=== PATIENT | male | born 1960 | race Caucasian/White ===

== ENCOUNTER 2019-02-25 07:07 | Day surgery (SDC) | payer BC ==
[~2019-02-25] VITALS: Ht 172.7 cm; Wt 95.9 kg
[~2019-02-25 07:07] MED LIST: ACET325 PO; ASPI325EC PO; ATOR40TA PO; Aspir 8181 MG PO; CLIN300 PO; CLOP75 PO; Coq-10100 MG PO; HYDACE5; LOSA25 PO; Lopressor 25 mg25 MG PO; METO25 PO; METPRE4DP PO; OXYACE5T PO; RXOXYACE PO; Ranitidine HCl150 M1 PO; VITAMIN D350000 UNIT PO
== END 2019-02-25 09:30 | disposition home or self-care (01) ==
LOC: ORSCSDS 07:07
PROVIDERS: Surgery
PROC: 0DBP8ZX Excision of Rectum, Via Natural or Artificial Opening Endoscopic, Diagnostic (ICD-10-PCS; principal; 2019-02-25 08:30)
DX: Z12.11 Encounter for screening for malignant neoplasm of colon (principal); K62.1 Rectal polyp; I21.4 Non-ST elevation (NSTEMI) myocardial infarction; I25.10 Atherosclerotic heart disease of native coronary artery without angina pectoris; E78.5 Hyperlipidemia, unspecified; E66.9 Obesity, unspecified; Z68.34 Body mass index [BMI] 34.0-34.9, adult; Z79.01 Long term (current) use of anticoagulants; Z79.82 Long term (current) use of aspirin; Z79.899 Other long term (current) drug therapy
CPT/HCPCS: 88305; J2704; J7120

== ENCOUNTER 2022-02-08 21:39 | Emergency (ER) | payer BC ==
[~2022-02-08] VITALS: Ht 172.7 cm; Wt 95.2 kg
[2022-02-08 22:22] LABS: BASOPHILS ABSOLUTE AUTO 0.03 K/mm3 (0.00-0.23); BASOPHILS PERCENT AUTO 0 % (0-2); EOSINOPHILS ABSOLUTE AUTO 0.27 K/mm3 (0.00-0.68); EOSINOPHILS PERCENT AUTO 4 % (0-6); Hematocrit 42.5 % (37.0-53.0); Hemoglobin 14.2 g/dL (13.5-17.5); IMMATURE GRAN ABSOLUTE AUTO 0.01 K/mm3 (0.00-0.10); IMMATURE GRAN PERCENT AUTO 0 % (0-1); LYMPHOCYTES ABSOLUTE AUTO 1.26 K/mm3 (0.84-5.20); LYMPHOCYTES PERCENT AUTO 16 % (21-46); MONOCYTES ABSOLUTE AUTO 0.81 K/mm3 (0.16-1.47); MONOCYTES PERCENT AUTO 11 % (4-13); Mean Corpuscular HGB 29.3 pg (26.0-34.0); Mean Corpuscular HGB Conc 33.4 g/dL (31.5-36.5); Mean Corpuscular Volume 88 fL (80-100); NEUTROPHILS ABSOLUTE AUTO 5.35 K/mm3 (1.96-9.15); NEUTROPHILS PERCENT AUTO 69 % (41-73); Platelet Count 255 K/mm3 (150-400); RDW Coefficient Variation 13.3 % (11.7-14.2); RDW Standard Deviation 43.6 fL (35.1-46.3); Red Blood Cell Count 4.84 M/mm3 (4.30-5.90); White Blood Cell Count 7.73 K/mm3 (4.00-11.30)
[2022-02-08 22:41] LABS: Alanine Aminotransfer (ALT/SGP 34 U/L (12-78); Albumin, Blood 3.6 g/dL (3.4-5.0); Albumin/Globulin Ratio 0.9 (0.8-1.8); Alk Phos 97 U/L (50-136); Anion Gap 5 mmol/L (6-16); Aspartate Aminotrans (AST/SGOT 24 U/L (12-37); Bilirubin, Total 0.5 mg/dL (0.1-1.0); Blood Urea Nitrogen 17 mg/dL (8-24); Bun/Creatinine Ratio 15.6 (12.0-20.0); CO2, Blood 27 mmol/L (21-32); Calcium, Blood 8.9 mg/dL (8.5-10.1); Chloride, Blood 109 mmol/L (98-108); Creatinine, Blood 1.09 mg/dL (0.60-1.20); Globulin, Blood 4.1 g/dL (2.2-4.0); Glomerular Filtration Rate >60 (60-); Glucose, Blood 102 mg/dL (70-99); Potassium, Blood 3.9 mmol/L (3.5-5.5); Sodium, Blood 141 mmol/L (136-145); Total Protein, Blood 7.7 g/dL (6.4-8.2)
[2022-02-08 22:46] LABS: Influenza A, PCR NEGATIVE (NEGATIVE); Influenza B, PCR NEGATIVE (NEGATIVE); Resp Syncytial Virus, PCR NEGATIVE (NEGATIVE); SARS-Cov-2 (COVID-19) PCR, MMC NEGATIVE (NEGATIVE)
[2022-02-08] MEDS ORDERED: LORA10ER PO (23:15)
[2022-02-08] MEDS ORDERED: ALBU90OI INH (23:15)
[2022-02-08] MEDS ORDERED: AZIT250 PO (23:15)
== END 2022-02-08 23:48 | disposition home or self-care (01) ==
LOC: ER 21:39
PROVIDERS: Physician Assistant
DX: J06.9 Acute upper respiratory infection, unspecified (principal); Z20.822 Contact with and (suspected) exposure to COVID-19; I25.2 Old myocardial infarction; I25.10 Atherosclerotic heart disease of native coronary artery without angina pectoris; E78.5 Hyperlipidemia, unspecified; Z79.82 Long term (current) use of aspirin; Z79.899 Other long term (current) drug therapy
CPT/HCPCS: 0241U; 36415; 71045; 80053; 84484; 85025; 93005; 93010; 99284-25; A9270

== ENCOUNTER 2025-07-22 08:54 | Observation (INO) | payer MEDICARE ==
[~2025-07-22] VITALS: Ht 172.7 cm; Wt 94.8 kg
[2025-07-22] VITALS (14 sets, daily range): BP systolic 106–156; BP diastolic 60–104
[~2025-07-22 08:54] MED LIST changes: +ALBU90OI INH; +AMLO5 PO; +AZIT250 PO; +Crestor40 MG PO; +EZET10 PO; +LORA10ER PO; +PANT40 PO
[2025-07-22] MEDS ORDERED: Heparin Sodium 1000 Units/ML 10ML MDV ONE ×2 (09:45→09:48)
[2025-07-22] MEDS ORDERED: NS 250 ML IV ONE (09:45)
[2025-07-22] MEDS ORDERED: NS 1,000 ML IV ONE ×2 (09:45→09:48)
[2025-07-22] MEDS ORDERED: Nitroglycerin 2 MG/20 ML BTL ONE (09:46)
[2025-07-22] MEDS ORDERED: Verapamil HCL 2.5 MG/ML 2ML Injection ONE (10:01)
[2025-07-22] MEDS ORDERED: Midazolam HCl 1MG / ML 2ML Vial ONE (10:11)
[2025-07-22] MEDS ORDERED: FentaNYL Citrate 50 MCG/ML 2 ML Injection ONE (10:11)
[2025-07-22] MEDS ORDERED: NiCARdipine HCL 1,000 MCG/5 ML SYR ONE (11:10)
--- NOTE | 2025-07-22 12:49 | NUR ---
FOLLOWED PT BACK FROM PROCEDURE, WAITING ON A PCU BED AT THIS TIME. R GROIN SITE STABLE AND L RADIAL SITE STABLE.
[2025-07-22] MEDS ORDERED: Polyethylene Glycol 3350 17 gm PO PRN (13:55)
--- NOTE | 2025-07-22 14:12 | NUR ---
arrival to pcu patient arrived to pcu at 1306 from [facility]. patient has right femoral site that is soft nontender, no hematoma or bleeding. angio seal is in place and patient is to lay flat until 1800. patient has a left radail site with tr band in place and 11cc in, and site is soft nontender and no bleeding or hematoma. bedside shift report given from [facility] nurse. patient is alert and oriented x4. neuro is intact. perrla. denies pain, chest pain/pressure or shortness of breath. patient lung sonds clear throughout. see amdit shift assessment for further detials. home med rec complete. history complete. admit is complete. patient life partner in the room and info on the board.
--- NOTE | 2025-07-22 16:59 | NUR ---
shift summary see previous note. vital signs remain stable. md og in room this afternoon around 1535 and discussed results of angio with the patient. patient verbalized understanding. patient right groin site is soft nontender and no hematome or bleeding. patient has remained laying flat and will until 1800. patient left radail site has been full recovered, and site is soft nontender and no hematoma. no acute changes since arrival.
[2025-07-23 00:18] VITALS: BP 104/56
[2025-07-23 04:02] VITALS: BP 122/77
[2025-07-23 04:23] LABS: BASOPHILS ABSOLUTE AUTO 0.02 K/mm3 (0.00-0.23); BASOPHILS PERCENT AUTO 0 % (0-2); EOSINOPHILS ABSOLUTE AUTO 0.15 K/mm3 (0.00-0.68); EOSINOPHILS PERCENT AUTO 2 % (0-6); Hematocrit 37.8 % (37.0-53.0); Hemoglobin 12.8 g/dL (13.5-17.5); IMMATURE GRAN ABSOLUTE AUTO 0.02 K/mm3 (0.00-0.10); IMMATURE GRAN PERCENT AUTO 0 % (0-1); LYMPHOCYTES ABSOLUTE AUTO 1.65 K/mm3 (0.84-5.20); LYMPHOCYTES PERCENT AUTO 24 % (21-46); MONOCYTES ABSOLUTE AUTO 0.64 K/mm3 (0.16-1.47); MONOCYTES PERCENT AUTO 9 % (4-13); Mean Corpuscular HGB Conc 33.9 g/dL (31.5-36.5); Mean Corpuscular Volume 88 fL (80-100); NEUTROPHILS ABSOLUTE AUTO 4.41 K/mm3 (1.96-9.15); NEUTROPHILS PERCENT AUTO 64 % (41-73); NRBC ABSOLUTE 0.00 K/mm3 (0.00-0.02); NRBC Auto 0.0 /100 WBC (0.0-0.2); Platelet Count 217 K/mm3 (150-400); RDW Coefficient Variation 13.1 % (11.7-14.2); RDW Standard Deviation 42.5 fL (35.1-46.3)
--- NOTE | 2025-07-23 06:51 | NUR ---
NO ACUTE EVENTS OVERNIGHT. PT'S LEFT RADIAL SITE AND RIGHT GROIN SITE ARE WNL. PT ABLE TO AMBULATE TO BATHROOM INDEPENDENTLY. PT HAD NO COMPLAINTS OF CHEST PAIN/PRESSURE. VSS. BED LOCKED IN LOWEST POSITION. CALL LIGHT WITHIN REACH.
[2025-07-23 06:58] LABS: Alanine Aminotransfer (ALT/SGP 44.0 U/L (12-78); Albumin, Blood 3.4 g/dL (3.4-5.0); Albumin/Globulin Ratio 1.2 (0.8-1.8); Anion Gap 8.0 mmol/L (3-11); Aspartate Aminotrans (AST/SGOT 25.0 U/L (12-37); Bilirubin, Total 0.4 mg/dL (0.1-1.0); Blood Urea Nitrogen 19.0 mg/dL (8-24); CO2, Blood 23.0 mmol/L (21-32); Calcium, Blood 8.9 mg/dL (8.5-10.1); Chloride, Blood 111.0 mmol/L (98-108); Creatinine, Blood 1.04 mg/dL (0.60-1.20); Globulin, Blood 2.9 g/dL (2.2-4.0); Glucose, Blood 92.0 mg/dL (70-99); Potassium, Blood 3.9 mmol/L (3.5-5.5); Sodium, Blood 138.0 mmol/L (136-145); Total Protein, Blood 6.3 g/dL (6.4-8.2)
[2025-07-23] MEDS ORDERED: Enoxaparin 40 MG/0.4 ML SYR SC SCH ×2 (08:00→09:00)
[2025-07-23 08:13] VITALS: BP 119/72
[2025-07-23 10:34] VITALS: BP 141/70
--- NOTE | 2025-07-23 13:52 | NUR ---
SHIFT SUMMARY PATIENT AOX4 ABLE TO MAKE NEEDS KNOWN DENIES CP OR SOB. VITALS ARE STABLE AND HE IS INDEPENDENT IN HIS ROOM USING THE RESTOOM AND TOLERATING HIS MEALS. HIS RIGHT GROIN AND LEFT RADIAL SITE ARE CDI WITH NO HEMATOMA, NO SWELLING, NO BRUISING AND NO PAIN. HE SPOKE WITH THE ROLLER OPERATOR AND HOSPITALIST AT BEDSIDE AND UNDERSTANDS AND AGREES WITH THE PLAN OF CARE. HE WAS EDUCATED ON ALL DISCHARGE INSTRUCTIONS AND GIVEN HIS STENT CARD. ALL QUESTIONS ANSWERED AND READY TO DISCHARGE.
== END 2025-07-23 10:00 | disposition home or self-care (01) ==
LOC: MHTC 08:54 → PCU 09:01
PROVIDERS: Registered Nurse; ADMIT Internal Medicine
DX: I25.810 Atherosclerosis of coronary artery bypass graft(s) without angina pectoris (principal); I25.2 Old myocardial infarction; I10 Essential (primary) hypertension; E78.00 Pure hypercholesterolemia, unspecified; Z79.02 Long term (current) use of antithrombotics/antiplatelets; Z79.82 Long term (current) use of aspirin; Z79.899 Other long term (current) drug therapy
CPT/HCPCS: 36415; 76937; 80053; 85025; 85347; 93459; 94762; 99152; 99153; A9270; C1725; C1760; C1769; C1874; C1887; C1894; C9604; J1644; J1650; J2250; J3010; J7030; J7050; Q9967